=== PATIENT | male | born 1985 | race Two or more races ===

== ENCOUNTER 2017-01-27 10:38 | Emergency (ER) | payer SELFPAY ==
[~2017-01-27 10:38] MED LIST: AMOXICILLIN500 M1 PO; IBUPROFEN200 M3 PO; MOTRIN IB200 M1 PO; NICOTINE PATCH1 EAC2 TD; NO HOME MEDICATION XX; NORCO 5-325 TA1 EACH PO; PROMETHAZINE HC25 M3 PO; TESSALON PERLE100 M1 PO; TYLENOL325 M2 PO; ZOFRAN4 M2 PO; [UNRECOGNIZED DRUG - REMARK]
[2017-01-27 12:30] LABS: BASO % 0.3 % (0-2); EOS % 1.4 % (0-7); EOSINOPHIL ABSOLUTE COUNT 0.2 tho/cmm (0.0-0.7); HCT-HEMATOCRIT 47.2 % (36.0-53.5); HGB-HEMOGLOBIN 16.1 gm/dl (13.5-17.0); IMMATURE GRANULOCYTES ABSOLUTE 0.01 tho/cmm (0-0.03); IMMATURE GRANULOCYTES PERCENT 0.1 % (0-0.3); LYMPH % 25.3 % (20-45); MCH (MEAN CORPUSCULAR HGB) 26.2 pg (28.0-32.0); MCHC MEAN CORPUSCULAR HGB CONC 34.1 % (32.0-36.0); MCV (MEAN CELL VOLUME) 76.9 fl (82.0-96.0); MONO % 10.3 % (0-12); MONOCYTE ABSOLUTE COUNT 1.2 tho/cmm (0.0-1.2); NEUTROPHIL ABSOLUTE COUNT 7.4 tho/cmm (1.6-8.0); NEUTROPHIL-AUTOMATED 7.4 tho/cmm (1.6-8.0); NEUTROPHILS % 62.6 % (40-80); PLATELET COUNT 241 tho/cmm (150-450); RED BLOOD COUNT 6.14 mil/cmm (4.40-5.70); RED CELL DISTRIBUTION WIDTH 14.2 % (12.4-16.4); WHITE BLOOD COUNT 11.8 tho/cmm (4.0-10.0)
[2017-01-27 12:36] LABS: URINE BILIRUBIN NEGATIVE (NEG); URINE BLOOD SMALL (NEG); URINE GLUCOSE (UA) NEGATIVE (NEG); URINE KETONE NEGATIVE (NEG); URINE LEUKOCYTE ESTERASE POSITIVE (NEG); URINE NITRITE NEGATIVE (NEG); URINE PROTEIN SMALL (NEG); URINE SPECIFIC GRAVITY 1.025 (1.003-1.030)
[2017-01-27 12:39] LABS: URINE APPEARANCE CLEAR; URINE COLOR DARK YELLOW
[2017-01-27 12:45] LABS: ALB/GLOB RATIO 1.1 (0.8-2.0); ALBUMIN 4.2 g/dl (3.5-5.0); ALKALINE PHOSPHATASE 66 U/L (33-138); ALT/SGPT 20 U/L (12-78); BLOOD UREA NITROGEN 16 mg/dl (6-24); CALCIUM 9.4 mg/dl (8.5-10.5); CARBON DIOXIDE-VENOUS 28 mmol/L (22-32); CHLORIDE 104 mmol/l (96-110); CREATININE 0.83 mg/dl (0.60-1.30); GLUCOSE 94 mg/dL (70-110); SODIUM 139 mmol/L (135-145); eGFR VALUE FOR BLACK >90 mL/Min
[2017-01-27 12:51] LABS: URINE MUCUS 2+
[2017-01-27 12:51] LABS: ANION GAP 12 mmol/L (0-20); AST/SGOT 32 U/L (10-40); POTASSIUM 4.5 mmol/L (3.7-5.1)
[2017-01-27 12:52] LABS: URINE EPITHELIAL CELLS RARE /[HPF] (0-10); URINE RBC 0-2 /[HPF] (0-5); URINE WBC 0-2 /[HPF] (0-5)
== END 2017-01-27 15:12 ==
LOC: EDMED 10:38
PROVIDERS: Emergency Medicine
DX: R76.11 Nonspecific reaction to tuberculin skin test without active tuberculosis (principal); F41.9 Anxiety disorder, unspecified; F17.210 Nicotine dependence, cigarettes, uncomplicated

== ENCOUNTER 2017-06-03 20:35 | Emergency (ER) | payer SELFPAY ==
[~2017-06-03] VITALS: Ht 172.7 cm; Wt 59.0 kg
[2017-06-03] MEDS ORDERED: ULTRAM50 M1 PO (22:10)
[2017-06-03] MEDS ORDERED: VALACYCLOVIR1000 M1 PO (22:10)
== END 2017-06-03 22:23 ==
LOC: EDMED 20:35
DX: J02.9 Acute pharyngitis, unspecified (principal); B02.9 Zoster without complications
CPT/HCPCS: J1885; J7030